=== PATIENT | male | born 1955 | race Hispanic/Latino ===

== ENCOUNTER 2019-09-27 09:41 | Emergency (ER) | payer MEDICARE, OTHER, SELFPAY ==
[2019-09-27 09:48] VITALS: BP 181/86; PULSE 91; RESP 18; TEMP 36.6; O2SAT 99; BMI 27.3
[2019-09-27 10:00] VITALS: BP 185/85; PULSE 88; RESP 19; O2SAT 98
[2019-09-27 10:07] LABS: Add Manual Diff / Slide Review NO; Basophils Absolute Auto 100 /uL (0-100); Eosinophils Absolute Auto 100 /uL (0-450); Eosinophils Percent Auto 0.6 % (2-4); Hematocrit 48.5 % (41-53); Hemoglobin 16.9 g/dL (13.5-17.5); Lymphocytes Absolute Auto 1500 /uL (1100-4500); Lymphocytes Percent Auto 12.6 % (25-40); Mean Corpuscular HGB Conc 34.8 % (30-36); Mean Corpuscular Hemoglobin 30.1 PG (26-34); Mean Corpuscular Volume 86.6 fL (80-100); Monocytes Absolute Auto 1100 /uL (0-900); Monocytes Percent Auto 9.5 % (3-14); Neutrophils Absolute Auto 8900 /uL (1500-7000); Neutrophils Percent Auto 76.3 % (50-75); Platelet Count 260 X10^3/uL (150-400); White Blood Cell Count 11.7 X10^3/uL (4.5-11.0)
[2019-09-27 10:13] LABS: INR 1.1 (0.9-1.3); Prothrombin Time 12.5 SECONDS (10.1-12.7)
[2019-09-27] MEDS: SODIUM CHLORIDE 0.9% 1,000 ML 1000 ML IV ×2 (10:15→11:19)
[2019-09-27 10:16] LABS: PTT Partial Thromboplastin Tim 34 SECONDS (26.4-36.2)
[2019-09-27 10:17] LABS: Alanine Aminotransferase 22 IU/L (<50); Albumin 4.4 g/dL (3.5-5.0); Albumin Globulin Ratio 1.2 (1.0-2.8); Alkaline Phosphatase 143 U/L (38-126); Aspartate Aminotransferase 31 IU/L (17-59); BUN Creatinine Ratio 13.4 (6-22); Bilirubin Total 0.7 mg/dL (0.2-1.3); Blood Urea Nitrogen 11 mg/dL (9-20); Calcium 9.3 mg/dL (8.4-10.2); Carbon Dioxide 22 mmol/L (22-32); Chloride 100 mmol/L (98-107); Estimated Glomerular Filt Rate > 60.0 mL/min (>60); Globulin 3.7 g/dL (1.7-4.1); Glucose 99 mg/dL (80-110); HEMOLYSIS < 15 (0-50); Lipase 54 U/L (23-300); Sodium 134 mmol/L (137-145); Total Protein 8.1 g/dL (6.3-8.2)
[2019-09-27 11:00] VITALS: BP 163/79; PULSE 64; RESP 15; O2SAT 98
--- NOTE | 2019-09-27 11:03 | DI.CT.S_ITS ---
PROCEDURE: CT ABDOMEN PELVIS W CON INDICATIONS: 3 days abdominal pain, RLQ tenderness TECHNIQUE: After the administration of oral and intravenous contrast, 5 mm thick sections acquired from the diaphragms to the symphysis. 5 mm thick coronal and sagittal reformats were performed. For radiation dose reduction, the following was used: automated exposure control, adjustment of mA and/or kV according to patient size. COMPARISON: None. FINDINGS: Image quality: Excellent. ABDOMEN: Lung bases: There is mild dependent atelectasis. Heart size is normal. Solid organs: Evaluation of the liver demonstrates no focal hepatic lesions. The gallbladder appears within normal limits without calcified gallstones. Biliary system is non-dilated. Pancreas enhances normally. No peripancreatic fat stranding or fluid collections. No pancreatic duct dilatation. The spleen is normal in size. No adrenal nodules. Kidneys demonstrate no hydronephrosis. Peritoneum and bowel: There is mild gastric wall thickening in the region of the antrum. Small and large bowel loops are normal in caliber and wall thickness. There are a few air-fluid levels in the small and large bowel without abnormal distention or transition point to suggest obstruction. The findings may represent a gastroenteritis. The appendix is normal in appearance. There is colonic diverticulosis without acute diverticulitis. No free fluid or air. Nodes and vessels: No retroperitoneal or mesenteric adenopathy. Aorta and inferior vena cava are normal in caliber. Miscellaneous: No ventral hernias. PELVIS: Genitourinary: Bladder wall thickness is normal. Miscellaneous: No inguinal hernias or adenopathy. Bones: No suspicious bony lesions. No vertebral body compression fractures. IMPRESSION: 1. No evidence of appendicitis. 2. Scattered air-fluid levels in the small and large bowel without abnormal distention or a transition point to suggest obstruction. The findings are nonspecific and may reflect an ileus or gastroenteritis. 3. Mild gastric wall thickening in the antrum is nonspecific and may represent a mild gastritis. 4. Colonic diverticulosis without acute diverticulitis. Dictated by: Brandon Shelby M.D. on 09/27/2019 at 11:57 Approved by: Brandon Shelby M.D. on 09/27/2019 at 12:04
[2019-09-27] MEDS: MORPHINE 4 MG/ML INJ IV (11:16)
[2019-09-27] MEDS: ONDANSETRON 4 MG/2 ML INJ IV (11:17)
[2019-09-27 11:44] LABS: Bacteria Urine None Seen; RBC Urine None Seen (0-5/HPF)
[2019-09-27 11:45] LABS: Appearance Urine UA CLEAR; Bilirubin Urine UA NEGATIVE (NEGATIVE); Color Urine UA YELLOW; Glucose Urine UA NEGATIVE (Negative); Ketones Urine UA 2+ (NEGATIVE); Leukocyte Esterase Urine UA NEGATIVE (NEGATIVE); Nitrite Urine UA NEGATIVE (Negative); Occult Blood Urine UA NEGATIVE (Negative); Protein Urine UA NEGATIVE (Negative); Specific Gravity Urine UA <=1.005 (1.000-1.035); Urobilinogen Urine UA 0.2 E.U./dL (0.2); pH Urine UA 5.5 (4.5-8.0)
[2019-09-27 12:01] LABS: Culture Indicated Urine Cult Not Indicated; Hyaline Casts Urine 0-1/LPF; Squamous Epithelial Cell Urine 0-1 /HPF (0-5/HPF); WBC Urine 0-1/HPF (0-5/HPF)
--- NOTE | 2019-09-27 12:55 | ED_ITS ---
HPI - Abdominal Pain General Chief Complaint: Abdominal Pain Stated Complaint: stomach cramping,vomiting Time Seen by Provider: 09/27/19 10:51 Source: patient Mode of arrival: Ambulatory Limitations: no limitations History of Present Illness HPI narrative: CC: Abdominal Pain HPI: The patient is a 64-year-old male who presents to the emergency department with presbycusis and an accent that is difficult to understand. He complains of abdominal pain with lower abdominal cramps for the last 3 days prior to admissi on. He complains of cramping abdominal pain that is sometimes stinging and points to the lower abdomen both right and left sides. He has had a couple of episodes of diarrhea without blood or melena. For 2 days he has had vomiting 2 times per day. There has been no hematemesis or coffee-ground emesis. He has a midline surgical scar for a gastrectomy that was performed in 1987 for peptic ulcer disease. He denies that he has had any melena or hematochezia. He has had no significant indigestion or heartburn. He denies a history of diverticulosis, diverticulitis, Crohn's disease, ulcerative colitis, irritable bowel syndrome any fall or injury. He has had no significant back pain. He sta jasmin that the discomfort is a crampy dull achy discomfort that is 7/10 in intensity. Nothing seems to make it better or worse. He denies a history of COPD myocardial infarction hypertension diabetes mellitus or pancreatitis. He has not had an appendectomy or cholecystectomy. He smokes cigarettes does not vapor drinks alcohol does not use any marijuana products. Related Data Previous Rx's Medication Instructions Recorded ciprofloxacin HCl [Cipro] 500 mg PO Q12H #14 tab 09/27/19 dicyclomine 20 mg PO TID PRN #12 tab 09/27/19 metronidazole [Flagyl] 500 mg PO Q12H #14 tab 09/27/19 ondansetron HCl [Zofran] 4 mg PO Q6H PRN #12 tab 09/27/19 Allergies Allergy/AdvReac Type Severity Reaction Status Date / Time No Known Drug Allergies Allergy Verified 09/27/19 10:14 Review of Systems Review of Systems Narrative: REVIEW OF SYSTEMS: CONSTITUTIONAL: The patient denies any fever chills or sweats. He has had no significant change in his weight. NEUROLOGICAL: He denies any headache numbness tingling loss of sensation paresthesias or paresis. EENT: He has had no sore throat or trouble swallowing no indigestion or heartburn. CARDIO-PULMONARY: He denies any significant chest pain cough shortness of breath difficulty in breathing. GASTROINTESTINAL: As noted above GENITAL URINARY: He denies any urinary symptoms. MUSCULOSKELETAL/ RHEUMATOLOGICAL: He has had no back pain worse than usual. DERMATOLOGICAL: No rash or bruising Patient History Social History Smoking Status: Current every day smoker Smoking Status: Current every day smoker alcohol intake frequency: a few times a week Substance Use Type: does not use Exam Narrative Exam Narrative: PHYSICAL EXAM: CONSTITUTIONAL: Awake, Alert, Oriented, Coherent, Cooperative in NAD. Does not appear toxic or ill. The patient has an accent that makes it difficult to understand. He also has presbycusis and is hard appearing. HEAD: AT/NC EENT: PERRL, FROM of eyes, no discharge, no conjunctivitis. NOSE:No epistaxis or nasal drainage MOUTH:Oral mucosa is moist and pink, posterior pharynx is without erythema or exudate. NECK: Supple, no obvious JVD, Trachea is midline without stridor, no palpable LN. SPINE: Palpationof the cervical, Thoracic, Lumbar or Sacral spine reveals no gross deformity or tenderness. No CVA tenderness. THORAX: No deformity, retractions, chest wall tenderness. LUNGS: Clear, symmetrical breath sounds without respiratory distress. HEART: Normal heart tones, regular rhythm and rate without murmur. ABDOMEN: The patient's abdomen is soft he is more tender in the right lower quadrant with mild guarding then he is on the left side. There is no rebound no rigidity nor palpable organomegaly. LYMPHATIC: no palpable lymph nodes or spleen. EXTREMITIES: No edema, deformity, tenderness or cyanosis. SKIN: No rash, bruising, petechiae or purpura. NEURO: Awake, alert, oriented, conversive, cranial nerves II-XII are symmetrical , moves all 4 extremities and is ambulatory. MENTAL HEALTH: Does not appear anxious or depressed. Initial Vital Signs Initial Vital Signs: Vital Signs Temperature 97.8 F 09/27/19 09:48 Pulse Rate 91 H 09/27/19 09:48 Respiratory Rate 18 09/27/19 09:48 Blood Pressure 181/86 H 09/27/19 09:48 Pulse Oximetry 99 09/27/19 09:48 Course Course Course Narrative: 1256: CT scan of the patient's abdomen reveals 1. No evidence of appendicitis. 2. Scattered air-fluid levels in the small and large bowel without abnormal distention or a transition point to suggest obstruction. The findings are nonspecific and may reflect an ileus or gastroenteritis. 3. Mild gastritic wall thickening in the antrum is nonspecific and may represent a mild gastritis. 4. Colonic diverticulosis without acute diverticulitis. 1257: The patient's white blood count is 11.7 hemoglobin 16.9 hematocrit 48.5, normal coagulation studies, slightly elevated alkaline phosphatase at 1:43 a.m.. The patient's urinalysis is negative. Orders Ordered: ED Orders 09/27/19 11:03 CT abdomen pelvis w con Stat 09/27/19 11:40 Urinalysis and Microscopic Stat Discontinued Medications Sodium Chloride (Normal Saline 0.9%) 1,000 mls @ 1,000 mls/hr IV BOLUS ONE Stop: 09/27/19 11:13 Last Infusion: 09/27/19 11:19 Dose: 0 mls/hr Documented by: Admin: 09/27/19 10:15 Dose: 1,000 mls/hr Documented by: YAYA Sodium Chloride (Normal Saline 0.9%) 1,000 mls @ 1,000 mls/hr IV BOLUS ONE Stop: 09/27/19 12:02 Last Infusion: 09/27/19 12:20 Dose: 0 mls/hr Documented by: Admin: 09/27/19 11:19 Dose: 1,000 mls/hr Documented by: YAYA Morphine Sulfate (Morphine) 4 mg IV NOW ONE Stop: 09/27/19 11:04 Last Admin: 09/27/19 11:16 Dose: 4 mg Documented by: YAYA Ondansetron HCl (Zofran) 4 mg IV NOW ONE Stop: 09/27/19 11:04 Last Admin: 09/27/19 11:17 Dose: 4 mg Documented by: YAYA Vital Signs Vital signs: Vital Signs - 8 hr 09/27/19 13:07 Pulse Rate 74 Respiratory Rate 21 Blood Pressure [Right Arm] 141/60 H Pulse Oximetry 94 MDM - Abdominal Pain Medical Records Attestation: I reviewed the patient's medical records. Lab Data Attestation: I reviewed the patient's lab results. Result diagrams: 09/27/19 09:59 09/27/19 09:59 Labs: Lab Results 09/27/19 09/27/19 09/27/19 Range/Units 09:59 09:59 09:59 WBC 11.7 H (4.5-11.0) X10^3/uL RBC 5.60 (4.5-5.9) X10^6/uL Hgb 16.9 (13.5-17.5) g/dL Hct 48.5 (41-53) % MCV 86.6 (80-100) fL MCH 30.1 (26-34) PG MCHC 34.8 (30-36) % RDW 14.0 (11.6-14.8) % Plt Count 260 (150-400) X10^3/uL Neut % (Auto) 76.3 H (50-75) % Lymph % (Auto) 12.6 L (25-40) % [place] % (Auto) 9.5 (3-14) % Eos % (Auto) 0.6 L (2-4) % Baso % (Auto) 1.0 (0-2) % Neut # (Auto) 8900 H (3288-2081) /uL Lymph # (Auto) 1500 (2301-2780) /uL [place] # (Auto) 1100 H (0-900) /uL Eos # (Auto) 100 (0-450) /uL Baso # (Auto) 100 (0-100) /uL PT 12.5 (10.1-12.7) SECONDS INR 1.1 (0.9-1.3) APTT 34 (26.4-36.2) SECONDS Sodium 134 L (137-145) mmol/L Potassium 4.0 (3.4-5.1) mmol/L Chloride 100 (98-107) mmol/L Carbon Dioxide 22 (22-32) mmol/L BUN 11 (9-20) mg/dL Creatinine 0.82 (0.66-1.25) mg/dL Estimated GFR > 60.0 (>60) mL/min BUN/Creatinine Ratio 13.4 (6-22) Glucose 99 (80-110) mg/dL Calcium 9.3 (8.4-10.2) mg/dL Total Bilirubin 0.7 (0.2-1.3) mg/dL AST 31 (17-59) IU/L ALT 22 (<50) IU/L Alkaline Phosphatase 143 H (38-126) U/L Total Protein 8.1 (6.3-8.2) g/dL Albumin 4.4 (3.5-5.0) g/dL Globulin 3.7 (1.7-4.1) g/dL Albumin/Globulin Ratio 1.2 (1.0-2.8) Lipase 54 (23-300) U/L Urine Color Urine Appearance Urine pH (4.5-8.0) Ur Specific [place] (1.000-1.035) Urine Protein (Negative) Urine Glucose (UA) (Negative) g/dL Urine Ketones (NEGATIVE) Urine Occult Blood (Negative) Urine Nitrate (Negative) Urine Bilirubin (NEGATIVE) Urine Urobilinogen (0.2) E.U./dL Ur Leukocyte Esterase (NEGATIVE) Urine RBC (0-5/HPF) Urine WBC (0-5/HPF) Ur Squamous Epith Cells (0-5/HPF) Urine Bacteria (None) Hyaline Casts (None) Ur Culture Indicated? 09/27/19 Range/Units 11:40 WBC (4.5-11.0) X10^3/uL RBC (4.5-5.9) X10^6/uL Hgb (13.5-17.5) g/dL Hct (41-53) % MCV (80-100) fL MCH (26-34) PG MCHC (30-36) % RDW (11.6-14.8) % Plt Count (150-400) X10^3/uL Neut % (Auto) (50-75) % Lymph % (Auto) (25-40) % [place] % (Auto) (3-14) % Eos % (Auto) (2-4) % Baso % (Auto) (0-2) % Neut # (Auto) (9193-5611) /uL Lymph # (Auto) (3990-8197) /uL [place] # (Auto) (0-900) /uL Eos # (Auto) (0-450) /uL Baso # (Auto) (0-100) /uL PT (10.1-12.7) SECONDS INR (0.9-1.3) APTT (26.4-36.2) SECONDS Sodium (137-145) mmol/L Potassium (3.4-5.1) mmol/L Chloride (98-107) mmol/L Carbon Dioxide (22-32) mmol/L BUN (9-20) mg/dL Creatinine (0.66-1.25) mg/dL Estimated GFR (>60) mL/min BUN/Creatinine Ratio (6-22) Glucose (80-110) mg/dL Calcium (8.4-10.2) mg/dL Total Bilirubin (0.2-1.3) mg/dL AST (17-59) IU/L ALT (<50) IU/L Alkaline Phosphatase (38-126) U/L Total Protein (6.3-8.2) g/dL Albumin (3.5-5.0) g/dL Globulin (1.7-4.1) g/dL Albumin/Globulin Ratio (1.0-2.8) Lipase (23-300) U/L Urine Color Yellow Urine Appearance Clear Urine pH 5.5 (4.5-8.0) Ur Specific [place] <=1.005 (1.000-1.035) Urine Protein Negative (Negative) Urine Glucose (UA) Negative (Negative) g/dL Urine Ketones 2+ H (NEGATIVE) Urine Occult Blood Negative (Negative) Urine Nitrate Negative (Negative) Urine Bilirubin Negative (NEGATIVE) Urine Urobilinogen 0.2 (0.2) E.U./dL Ur Leukocyte Esterase Negative (NEGATIVE) Urine RBC None seen (0-5/HPF) Urine WBC 0-1/hpf (0-5/HPF) Ur Squamous Epith Cells 0-1 /hpf (0-5/HPF) Urine Bacteria None seen (None) Hyaline Casts 0-1/lpf (None) Ur Culture Indicated? Cult not indicated ECG Data Attestation: I personally reviewed and interpreted this ECG as follows: Interpretation: The patient's EKG obtained on September 26 at 09:5 7:28 a.m. revealed a normal sinus rhythm with a ventricular rate of 82. The patient's intervals were normal. QTC is slightly prolonged at 455 milliseconds. The patient has normal axis. The patient has no acute diagnostic ST segment changes. The T-waves are slightly biphasic in V1. There are no other acute diagnostic ST or T-wave changes to suggest ischemia or infarct. The patient's ST segments are nonspecific. Discharge Plan Departure Patient Disposition: Home Clinical Impression: Ileus, Diverticulosis Abdominal pain Qualifiers: Abdominal location: lower abdomen, unspecified Qualified Code(s): R10.30 - Lower abdominal pain, unspecified Discharge Date/Time: 09/27/19 13:17 Instructions: Diverticulitis, DI for Viral Gastroenteritis -- Adult, DI for Abdominal Pain-Adult Activity Restrictions/Additional Instructions: 1. Start with a clear liquid diet and advance her diet as tolerated. 2. Follow-up in be re-evaluated if your pain and discomfort does not improve in 48-72 hours. Follow-up with your primary care physician. 3. For abdominal pain and discomfort use the Bentyl as prescribed 4. For nausea and vomiting take the Zofran. As prescribed 5, for the diverticulosis use the Cipro 500 mg twice a day and Flagyl 500 mg twice a day for the next 7 days. Do not drink alcohol with these medicines 6. Return to the emergency department if you develop any worsening symptomatology fever passing-out worsening uncontrolled pain or discomfort. Prescriptions: New ondansetron HCl [Zofran] 4 mg tablet 4 mg PO Q6H PRN (Reason: nausea and vomiting) Qty: 12 RF: 0 dicyclomine 20 mg tablet 20 mg PO TID PRN (Reason: abdominal pain cramps) Qty: 12 RF: 0 ciprofloxacin HCl [Cipro] 500 mg tablet 500 mg PO Q12H Qty: 14 RF: 0 metronidazole [Flagyl] 500 mg tablet 500 mg PO Q12H Qty: 14 RF: 0
[2019-09-27 13:07] VITALS: BP 141/60; PULSE 74; RESP 21; O2SAT 94
== END 2019-09-27 13:17 | disposition home or self-care (01) ==
PROVIDERS: Emergency Provider Emergency Medicine
DX: K57.90 Diverticulosis of intestine, part unspecified, without perforation or abscess without bleeding (principal); R10.30 Lower abdominal pain, unspecified
CPT/HCPCS: 36415; 74177; 80053; 81001; 83690; 85025; 85610; 85730; 93005; 96361; 96374; 96375; 99284; 99285; J2270; J2405; Q9967

== ENCOUNTER 2019-10-03 09:28 | Emergency (ER) | payer MEDICARE, OTHER, SELFPAY ==
[2019-10-03 09:54] VITALS: BP 169/81; PULSE 74; RESP 16; TEMP 36.3; O2SAT 100
--- NOTE | 2019-10-03 10:22 | ED_ITS ---
HPI - Abdominal Pain General Chief Complaint: Abdominal Pain Stated Complaint: continued abd pain x3 days Time Seen by Provider: 10/03/19 10:21 Source: patient Mode of arrival: Family Vehicle Limitations: no limitations History of Present Illness HPI narrative: CC: Persistent abdominal pain HPI: The patient is a 64-year-old male who was initially evaluated by myself on September 26. At that time a CT scan of his abdomen was performed which revealed that he had multiple loops of bowel without dilation but air-fluid levels consistent with an enteritis. There was no evidence of an acute bowel obstruction or transition point. It was thought that the patient had gastroenteritis with an ileus. The patient also had diverticulosis without diverticulitis. The patient was doing fine and his Bentyl finished yesterday. Last night the patient developed severe right upper quadrant cramp that was 9 to 10/10 in intensity. His diarrhea has resolved. He only has a couple more days of antibiotics. He is on Flagyl and has not been drinking any alcohol. Last night he had all 1 bowel movement since being seen and it was black and appeared like tar. He denies any indigestion or heartburn. He denies any back pain. He states that he has not had his gallbladder removed or his appendix. He has not had pancreatitis to his knowledge and is not a diabetic. He does smoke cigarettes drinks alcohol but does not use marijuana. He denies that he has had fever chills sweats headache chest pain cough shortness of breath palpitations dizziness or lightheadedness. He has had no troubles urinating. Related Data Previous Rx's Medication Instructions Recorded ciprofloxacin HCl [Cipro] 500 mg PO Q12H #14 tab 09/27/19 dicyclomine 20 mg PO TID PRN #12 tab 09/27/19 metronidazole [Flagyl] 500 mg PO Q12H #14 tab 09/27/19 ondansetron HCl [Zofran] 4 mg PO Q6H PRN #12 tab 09/27/19 dicyclomine 20 mg PO QID PRN #20 tab 10/03/19 pantoprazole [Protonix] 40 mg PO DAILY #20 tab 10/03/19 sucralfate [Carafate] 10 ml PO QID PRN #420 ml 10/03/19 Allergies Allergy/AdvReac Type Severity Reaction Status Date / Time No Known Drug Allergies Allergy Verified 09/27/19 10:14 Review of Systems Review of Systems Narrative: All review of systems were negative except for those mentioned in the history of present illness. Patient History Social History Smoking Status: Current every day smoker Smoking Status: Current every day smoker tobacco type: cigarettes alcohol intake frequency: a few times a week Substance Use Type: does not use Exam Narrative Exam Narrative: PHYSICAL EXAM: CONSTITUTIONAL: Awake, Alert, Oriented, Coherent, Cooperative in NAD. Does not appear toxic or ill. Is very hard of hearing. HEAD: AT/NC EENT: PERRL, FROM of eyes, no discharge, no nystagmus EARS:NOSE:No epistaxis or nasal drainage MOUTH:Oral mucosa is moist and pink, posterior pharynx is without erythema or exudate. NECK: Supple, no obvious JVD, Trachea is midline without stridor, SPINE: Palpationof the cervical, Thoracic, Lumbar or Sacral spine reveals no gross deformity or tenderness. No CVA tenderness. THORAX: No deformity, chest wall tenderness. LUNGS: Clear, symmetrical breath sounds without respiratory distress. HEART: Normal heart tones, regular rhythm and rate without murmur. ABDOMEN: Soft tender in the right upper quadrant with mild guarding questionable positive Sorensen sign. LYMPHATIC: no palpable lymph nodes or spleen. EXTREMITIES: No edema, deformity, tenderness or cyanosis. SKIN: No rash, bruising, petechiae or purpura. NEURO: Awake, alert, oriented, conversive, cranial nerves II-XII are symmetrical , moves all 4 extremities and is ambulatory. MENTAL HEALTH: Does not appear anxious or depressed. Initial Vital Signs Initial Vital Signs: Vital Signs Temperature 97.4 F L 10/03/19 09:54 Pulse Rate 74 10/03/19 09:54 Respiratory Rate 16 10/03/19 09:54 Blood Pressure 169/81 H 10/03/19 09:54 Pulse Oximetry 100 10/03/19 09:54 Course Course Course Narrative: 1211: Ultrasound of the patient's right upper quadrant and gallbladder reveals normal echotexture, gallbladder is within normal limits wall is 1.3 mm thick pericholecystic fluid is absent sono Sorensen sign is positive. The biliary tree is 7.4 mm. Pancreas is within normal limits. His laboratory chemistries remain pending at this time. Rectal exam revealed that the patient has a very tight sphincter. There were no masses noted. Prostate was firm and smooth with. Minimal stool with secreti ons that appeared dark but tested negative for occult blood. 1327: All labs on [facility] state that they are all pending. Lab states that none of the labs have been drawn. 1338: The plan is to discharge the patient after his blood work is drawn. I do not believe that the blood work is going to change anything. The patient is being treated clinically as though he may be having gastritis and GERD. His diarrhea has resolved and he is not having any lower abdominal pain or tenderness. His Flagyl and Cipro will be discontinued. However he will be given a prescription for Bentyl which seems to help him the most with his abdominal cramps and discomfort. His diet will be advanced and he will be given a prescription for Protonix 40 mg per day and Carafate to be used as necessary 4 times a day for indigestion heartburn and abdominal pain. If he has any abnormal labs we will call him to inform him of his abnormal chemistries. Orders Ordered: Discontinued Medications Dicyclomine HCl (Bentyl) 20 mg PO NOW ONE Stop: 10/03/19 13:29 Last Admin: 10/03/19 13:39 Dose: 20 mg Documented by: TAYA Sodium Chloride (Normal Saline 0.9%) 1,000 mls @ 1,000 mls/hr IV BOLUS ONE Stop: 10/03/19 11:24 Last Infusion: 10/03/19 12:51 Dose: 0 mls/hr Documented by: Admin: 10/03/19 11:08 Dose: 1,000 mls/hr Documented by: JOE Ondansetron HCl (Zofran) 4 mg IV NOW ONE Stop: 10/03/19 10:26 Last Admin: 10/03/19 11:07 Dose: 4 mg Documented by: JOE Pantoprazole Sodium (Protonix) 40 mg IV NOW ONE Stop: 10/03/19 13:29 Last Admin: 10/03/19 13:39 Dose: 40 mg Documented by: TAYA Sucralfate (Carafate) 1 gm PO [facility] Sucralfate (Carafate) 1 gm PO NOW ONE Stop: 10/03/19 13:34 Last Admin: 10/03/19 13:39 Dose: 1 gm Documented by: TAYA Vital Signs Vital signs: Vital Signs - 8 hr 10/03/19 09:54 10/03/19 12:20 10/03/19 13:00 Temperature 97.4 F L Pulse Rate 74 62 67 Respiratory Rate 16 16 16 Blood Pressure 169/81 H Blood Pressure [Right Arm] 193/84 H 193/87 H Pulse Oximetry 100 99 98 MDM - Abdominal Pain Lab Data Result diagrams: 10/03/19 13:40 10/03/19 13:40 Labs: Lab Results 10/03/19 10/03/19 10/03/19 Range/Units 12:15 13:40 13:40 WBC 8.1 (4.5-11.0) X10^3/uL RBC 5.29 (4.5-5.9) X10^6/uL Hgb 16.0 (13.5-17.5) g/dL Hct 46.1 (41-53) % MCV 87.3 (80-100) fL MCH 30.3 (26-34) PG MCHC 34.7 (30-36) % RDW 13.6 (11.6-14.8) % Plt Count 233 (150-400) X10^3/uL Neut % (Auto) 74.0 (50-75) % Lymph % (Auto) 13.3 L (25-40) % [place] % (Auto) 10.6 (3-14) % Eos % (Auto) 1.1 L (2-4) % Baso % (Auto) 1.0 (0-2) % Neut # (Auto) 6000 (0964-1365) /uL Lymph # (Auto) 1100 (0952-6222) /uL H[place]ett # (Auto) 900 (0-900) /uL Eos # (Auto) 100 (0-450) /uL Baso # (Auto) 100 (0-100) /uL ESR 6 (0-15) MM/HR Sodium 138 (137-145) mmol/L Potassium 4.7 (3.4-5.1) mmol/L Chloride 104 (98-107) mmol/L Carbon Dioxide 27 (22-32) mmol/L BUN 7 L (9-20) mg/dL Creatinine 0.74 (0.66-1.25) mg/dL Estimated GFR > 60.0 (>60) mL/min BUN/Creatinine Ratio 9.5 (6-22) Glucose 93 (80-110) mg/dL Lactate (0.7-2.1) mmol/L Calcium 9.1 (8.4-10.2) mg/dL Total Bilirubin 0.6 (0.2-1.3) mg/dL AST 39 (17-59) IU/L ALT 21 (<50) IU/L Alkaline Phosphatase 80 D (38-126) U/L Lactate Dehydrogenase (313-618) U/L C-Reactive Protein < 0.5 (<1.0) mg/dL Total Protein 6.9 (6.3-8.2) g/dL Albumin 3.9 (3.5-5.0) g/dL Globulin 3.0 (1.7-4.1) g/dL Albumin/Globulin Ratio 1.3 (1.0-2.8) Lipase 49 (23-300) U/L Urine Color Yellow Urine Appearance Clear Urine pH 6.5 (4.5-8.0) Ur Specific [place] 1.015 (1.000-1.035) Urine Protein Negative (Negative) Urine Glucose (UA) Negative (Negative) g/dL Urine Ketones 2+ H (NEGATIVE) Urine Occult Blood Negative (Negative) Urine Nitrate Negative (Negative) Urine Bilirubin Negative (NEGATIVE) Urine Urobilinogen 0.2 (0.2) E.U./dL Ur Leukocyte Esterase Negative (NEGATIVE) Urine RBC None seen (0-5/HPF) Urine WBC None seen (0-5/HPF) Amorphous Sediment 1+ Urine Bacteria None seen (None) Urine Mucus 1+ H (Negative) Ur Culture Indicated? Cult not indicated 10/03/19 10/03/19 Range/Units 13:40 13:40 WBC (4.5-11.0) X10^3/uL RBC (4.5-5.9) X10^6/uL Hgb (13.5-17.5) g/dL Hct (41-53) % MCV (80-100) fL MCH (26-34) PG MCHC (30-36) % RDW (11.6-14.8) % Plt Count (150-400) X10^3/uL Neut % (Auto) (50-75) % Lymph % (Auto) (25-40) % [place] % (Auto) (3-14) % Eos % (Auto) (2-4) % Baso % (Auto) (0-2) % Neut # (Auto) (5968-3963) /uL Lymph # (Auto) (7688-1647) /uL [place]ett # (Auto) (0-900) /uL Eos # (Auto) (0-450) /uL Baso # (Auto) (0-100) /uL ESR (0-15) MM/HR Sodium (137-145) mmol/L Potassium (3.4-5.1) mmol/L Chloride (98-107) mmol/L Carbon Dioxide (22-32) mmol/L BUN (9-20) mg/dL Creatinine (0.66-1.25) mg/dL Estimated GFR (>60) mL/min BUN/Creatinine Ratio (6-22) Glucose (80-110) mg/dL Lactate 0.9 (0.7-2.1) mmol/L Calcium (8.4-10.2) mg/dL Total Bilirubin (0.2-1.3) mg/dL AST (17-59) IU/L ALT (<50) IU/L Alkaline Phosphatase (38-126) U/L Lactate Dehydrogenase 428 (313-618) U/L C-Reactive Protein (<1.0) mg/dL Total Protein (6.3-8.2) g/dL Albumin (3.5-5.0) g/dL Globulin (1.7-4.1) g/dL Albumin/Globulin Ratio (1.0-2.8) Lipase (23-300) U/L Urine Color Urine Appearance Urine pH (4.5-8.0) Ur Specific [place] (1.000-1.035) Urine Protein (Negative) Urine Glucose (UA) (Negative) g/dL Urine Ketones (NEGATIVE) Urine Occult Blood (Negative) Urine Nitrate (Negative) Urine Bilirubin (NEGATIVE) Urine Urobilinogen (0.2) E.U./dL Ur Leukocyte Esterase (NEGATIVE) Urine RBC (0-5/HPF) Urine WBC (0-5/HPF) Amorphous Sediment Urine Bacteria (None) Urine Mucus (Negative) Ur Culture Indicated? Discharge Plan Departure Patient Disposition: Home Clinical Impression: Abdominal pain, RUQ, Melena Discharge Date/Time: 10/03/19 14:36 Instructions: DI for Ileus, DI for Gastroesophageal Reflux Disease (GERD), DI for Gastritis, DI for Dyspepsia Activity Restrictions/Additional Instructions: 1. Since her diarrhea has stopped you can stop the Cipro and Flagyl. 2. For abdominal pain and cramps you can take Bentyl 20 mg 4 times a day. 3. For the pain in the right upper quadrant and black stools take Protonix 40 mg per day until gone. 4. For abdominal pain indigestion heartburn take Carafate 1 g 4 times a day as necessary. Follow-up with your primary care physician for re-evaluation and possible referral to a monitoring manager for an upper endoscopy to check for an ulcer 5. You need to drink 3-4 liters of fluid per day for the next 2-3 days. Your urinalysis reveals that you have mild dehydration. If you are not better in 48-72 hours you need to be re-evaluated. Prescriptions: New dicyclomine 20 mg tablet 20 mg PO QID PRN (Reason: abdominal pain and cramps) Qty: 20 RF: 1 pantoprazole [Protonix] 40 mg tablet,delayed release (DR/EC) 40 mg PO DAILY Qty: 20 RF: 0 sucralfate [Carafate] 100 mg/mL suspension 10 ml PO QID PRN (Reason: indigestion, heartburn, abdominal pain) Qty: 420 RF : 0 No Action ondansetron HCl [Zofran] 4 mg tablet 4 mg PO Q6H PRN (Reason: nausea and vomiting) Qty: 12 RF: 0 dicyclomine 20 mg tablet 20 mg PO TID PRN (Reason: abdominal pain cramps) Qty: 12 RF: 0 ciprofloxacin HCl [Cipro] 500 mg tablet 500 mg PO Q12H Qty: 14 RF: 0 metronidazole [Flagyl] 500 mg tablet 500 mg PO Q12H Qty: 14 RF: 0
--- NOTE | 2019-10-03 10:46 | DI.US.S_ITS ---
PROCEDURE: US ABDOMEN LIMITED INDICATIONS: RIGHT UPPER QUADRANT PAIN TECHNIQUE: Real-time focused scanning was performed of the abdomen, with image documentation. COMPARISON: [facility], CT, CT ABDOMEN PELVIS W CON, 09/27/2019, 11:02. FINDINGS: The liver is normal in size and appears to demonstrate increased echogenicity, but is not well evaluated or completely included on this study. There is no intrahepatic biliary dilatation. The common bile duct is measuring within the upper limits of normal for size for the patient's age at 7 mm in diameter. The gallbladder is within normal limits without cholelithiasis or evidence of gallbladder wall inflammation. The pancreas is unremarkable. However, portions of the pancreas were obscured by overlying bowel gas. The right kidney, abdominal aorta, and inferior vena cava were not imaged were not adequately imaged on this study. IMPRESSION: 1. No cholelithiasis or evidence of acute cholecystitis. 2. Probable hepatic steatosis. Dictated by: Eulalio Delgado M.D. on 10/03/2019 at 10:55 Approved by: Eulalio Delgado M.D. on 10/03/2019 at 10:56
[2019-10-03] MEDS: ONDANSETRON 4 MG/2 ML INJ IV (11:07)
[2019-10-03] MEDS: SODIUM CHLORIDE 0.9% 1,000 ML 1000 ML IV (11:08)
[2019-10-03 12:20] VITALS: BP 193/84; PULSE 62; RESP 16; O2SAT 99
[2019-10-03 12:40] LABS: Bacteria Urine None Seen; RBC Urine None Seen (0-5/HPF); WBC Urine None Seen (0-5/HPF)
[2019-10-03 12:44] LABS: Appearance Urine UA CLEAR; Bilirubin Urine UA NEGATIVE (NEGATIVE); Color Urine UA YELLOW; Glucose Urine UA NEGATIVE (Negative); Ketones Urine UA 2+ (NEGATIVE); Leukocyte Esterase Urine UA NEGATIVE (NEGATIVE); Nitrite Urine UA NEGATIVE (Negative); Occult Blood Urine UA NEGATIVE (Negative); Protein Urine UA NEGATIVE (Negative); Specific Gravity Urine UA 1.015 (1.000-1.035); Urobilinogen Urine UA 0.2 E.U./dL (0.2); pH Urine UA 6.5 (4.5-8.0)
[2019-10-03 12:56] LABS: Amorphous Sediment Urine 1+; Culture Indicated Urine Cult Not Indicated; Mucus Urine 1+ (Negative)
[2019-10-03 13:00] VITALS: BP 193/87; PULSE 67; RESP 16; O2SAT 98
[2019-10-03] MEDS: SUCRALFATE 1 GM/10 ML ORAL SUSP PO (13:39)
[2019-10-03] MEDS: DICYCLOMINE 10 MG CAPSULE 20 MG PO (13:39)
[2019-10-03] MEDS: PANTOPRAZOLE 40 MG VIAL IV (13:39)
[2019-10-03 13:53] LABS: Add Manual Diff / Slide Review NO; Basophils Absolute Auto 100 /uL (0-100); Eosinophils Absolute Auto 100 /uL (0-450); Eosinophils Percent Auto 1.1 % (2-4); Hematocrit 46.1 % (41-53); Lymphocytes Absolute Auto 1100 /uL (1100-4500); Lymphocytes Percent Auto 13.3 % (25-40); Mean Corpuscular HGB Conc 34.7 % (30-36); Mean Corpuscular Hemoglobin 30.3 PG (26-34); Mean Corpuscular Volume 87.3 fL (80-100); Monocytes Absolute Auto 900 /uL (0-900); Monocytes Percent Auto 10.6 % (3-14); Neutrophils Absolute Auto 6000 /uL (1500-7000); Platelet Count 233 X10^3/uL (150-400); Red Blood Cell Count 5.29 X10^6/uL (4.5-5.9); Red Cell Distribution Width 13.6 % (11.6-14.8); White Blood Cell Count 8.1 X10^3/uL (4.5-11.0)
[2019-10-03 14:00] VITALS: BP 189/84; PULSE 69; RESP 16; O2SAT 99
[2019-10-03 14:00] LABS: Lactate (Lactic Acid) 0.9 mmol/L (0.7-2.1)
[2019-10-03 14:01] LABS: Lactate Dehydrogenase 428 U/L (313-618)
[2019-10-03 14:03] LABS: Alanine Aminotransferase 21 IU/L (<50); Albumin 3.9 g/dL (3.5-5.0); Albumin Globulin Ratio 1.3 (1.0-2.8); Alkaline Phosphatase 80 U/L (38-126); Aspartate Aminotransferase 39 IU/L (17-59); BUN Creatinine Ratio 9.5 (6-22); Bilirubin Total 0.6 mg/dL (0.2-1.3); Blood Urea Nitrogen 7 mg/dL (9-20); C-Reactive Protein Quant < 0.5 mg/dL (<1.0); Calcium 9.1 mg/dL (8.4-10.2); Carbon Dioxide 27 mmol/L (22-32); Chloride 104 mmol/L (98-107); Estimated Glomerular Filt Rate > 60.0 mL/min (>60); Glucose 93 mg/dL (80-110); HEMOLYSIS < 15 (0-50); Lipase 49 U/L (23-300); Potassium 4.7 mmol/L (3.4-5.1); Sodium 138 mmol/L (137-145); Total Protein 6.9 g/dL (6.3-8.2)
[2019-10-03 14:12] LABS: Erythrocyte Sedimentation Rate 6 MM/HR (0-15)
[2019-10-03 14:35] VITALS: BP 159/78; PULSE 78; RESP 18; O2SAT 98
== END 2019-10-03 14:36 | disposition home or self-care (01) ==
PROVIDERS: Emergency Provider Emergency Medicine
DX: R10.11 Right upper quadrant pain (principal); K92.1 Melena
CPT/HCPCS: 36415; 76705; 80053; 81001; 83605; 83615; 83690; 85025; 85651; 86140; 96361; 96374; 96375; 99284; C9113; J2405